=== PATIENT | male | born 1955 | race Caucasian/White ===

== ENCOUNTER 2024-01-21 01:21 | Observation (INO) | payer MEDICARE ==
[2024-01-21] MEDS: SODIUM CHLORIDE 0.9% 1,000 ML IV STA (01:41)
[2024-01-21] MEDS: SODIUM CHLORIDE 0.9% 500 ML 500 ML IV STA (01:42)
[2024-01-21] MEDS: LORazepam 2 MG/ML INJ IV STA ×2 (01:42→03:42)
--- NOTE | 2024-01-21 01:43 | ED ---
General Adult HPI - General Chief complaint: Altered Mental Status Stated complaint: Detox Time Seen by Provider: 01/21/24 01:26 Source: patient, EMS, RN notes reviewed Mode of arrival: EMS Limitations: no limitations - History of Present Illness Initial comments: 68-year-old male presents emergency department from [facility] for evaluation of possible confusion. Patient stated that he was upset because he is out of his cigarettes that he has not been provided any cigarettes. He states that he went to the nurses desk and they asked someone to questions in which she stated he was from [place] in which he states he lived there before but he does admit that he recently came to [place] and is homeless. Patient denies any physical plaints denies feeling shaky or having any significant withdrawal symptoms he did receive Ativan last night. Patient has any chest pain shortness of breath no nausea vomiting no other associated symptoms. - Related Data Home Medications Medication Instructions Recorded Confirmed Acetaminophen Tab [Tylenol] 650 mg PO Q4H PRN MDD 4 doses 01/21/24 01/21/24 Calcium Phos/D3/Magnesium/Zinc 1 tab PO TID PRN 01/21/24 01/21/24 [Kqymbkm-Iyw-Gmde-Vitamin D3] Chlorpheniramine Maleate 4 mg PO Q4H PRN 01/21/24 01/21/24 [Chlor-Trimeton] Ibuprofen [Motrin Ib] 600 mg PO Q6H PRN 01/21/24 01/21/24 LORazepam [Ativan] 1 - 2 mg PO Q4H PRN 01/21/24 01/21/24 Loperamide HCl [Imodium A-D] 4 mg PO QID PRN MDD 8 tablets 01/21/24 01/21/24 Multivitamins, Thera [Multivitamin 1 tab PO DAILY 01/21/24 01/21/24 (formulary)] Mylanta 30 ml PO Q4H PRN 01/21/24 01/21/24 Nicotine Polacrilex [Nicotine 2 mg BC QID PRN 01/21/24 01/21/24 Lozenge] Thiamine [Vitamin B-1] 100 mg PO DAILY 01/21/24 01/21/24 amLODIPine [Norvasc] 5 mg PO DAILY 01/21/24 01/21/24 ondansetron HCL [Zofran] 8 mg PO Q6H PRN 01/21/24 01/21/24 Allergies Allergy/AdvReac Type Severity Reaction Status Date / Time No Known Allergies Allergy Verified 01/21/24 08:01 Review of Systems ROS Statement: Those systems with pertinent positive or pertinent negative responses have been documented in the HPI. ROS Other: All systems not noted in ROS Statement are negative. Past Medical History Past Medical History: Hypertension History of Any Multi-Drug Resistant Organisms: None Reported Past Surgical History: No Surgical Hx Reported Past Psychological History: No Psychological Hx Reported Smoking Status: Current every day smoker Past Alcohol Use History: Abuse Past Drug Use History: None Reported General Exam Limitations: no limitations General appearance: alert, in no apparent distress Head exam: Present: atraumatic, normocephalic, normal inspection Eye exam: Present: normal appearance, PERRL, EOMI. Absent: scleral icterus, conjunctival injection, periorbital swelling ENT exam: Present: mucous membranes moist. Absent: normal oropharynx (Poor dentition) Neck exam: Present: normal inspection, full ROM. Absent: tenderness, meningis mus, lymphadenopathy Respiratory exam: Present: normal lung sounds bilaterally. Absent: respiratory distress, wheezes, rales, rhonchi, stridor Cardiovascular Exam: Present: regular rate, normal rhythm, normal heart sounds. Absent: systolic murmur, diastolic murmur, rubs, gallop, clicks GI/Abdominal exam: Present: soft, normal bowel sounds. Absent: distended, tenderness, guarding, rebound, rigid Neurological exam: Present: alert, oriented X3, CN II-XII intact Course Vital Signs 01/21/24 01/21/24 01/21/24 01:23 01:49 02:55 Pulse Rate 89 81 86 Respiratory 18 16 16 Rate Blood Pressure 178/111 168/92 158/96 O2 Sat by Pulse 99 99 Oximetry 01/21/24 04:58 Pulse Rate 82 Respiratory 18 Rate Blood Pressure 160/98 O2 Sat by Pulse 100 Oximetry EKG Findings - EKG Comments: EKG Findings:: EKG performed at 1: 22 sinus rhythm rate 86 [place] 181 QRS 100 QT/QTc 387/430 - EKG Results: EKG: interpreted by BEN Medical Decision Making - Medical Decision Making Was pt. sent in by a medical professional or institution (, PA, MANAGER BUSINESS CONTINU[employer], urgent care, hospital, or [facility]...) When possible be specific @ -[place] Did you speak to anyone other than the patient for history (EMS, parent, family, police, friend...)? What history was obtained from this source @ -No Did you review nursing and triage notes (agree or disagree)? Why? @ -I reviewed and agree with nursing and triage notes Were old charts reviewed (outside hosp., previous admission, EMS record, old EKG, old radiological studies, urgent care reports/EKG's, m[facility] records)? Report findings @ -No old charts were reviewed Differential Diagnosis (chest pain, altered mental status, abdominal pain women, abdominal pain men, vaginal bleeding, weakness, fever, dyspnea, syncope, headache, dizziness, GI bleed, back pain, seizure, CVA, palpatations, mental health, musculoskeletal)? @ -Alcohol withdrawal, alcohol abuse EKG interpreted by me (3pts min.). @ -None X-rays interpreted by me (1pt min.). @ -None done CT interpreted by me (1pt min.). @ -None done U/S interpreted by me (1pt. min.). @ -None done What testing was considered but not performed or refused? (CT, X-rays, U/S, labs)? Why? @ -None What meds were considered but not given or refused? Why? @ -None Did you discuss the management of the patient with other professionals (professionals i.e. , PA, MANAGER BUSINESS [employer]INU[employer], lab, RT, psych nurse, social services designee, book publisher, teacher, drug abuse resistance education officer, caseworker)? Give summary @ -[Dr. Decker for admission Was smoking cessation discussed for >3mins.? @ -No Was critical care preformed (if so, how long)? @ -No Were there social determinants of health that impacted care today? How? (Homelessness, low income, unemployed, alcoholism, drug addiction, transportation, low edu. Level, literacy, decrease access to med. care, fdc, rehab)? @ -No Was there de-escalation of care discussed even if they declined (Discuss DNR or withdrawal of care, Hospice)? DNR status @ -No What co-morbidities impacted this encounter? (DM, HTN, Smoking, COPD, CAD, Cancer, CVA, ARF, Chemo, Hep., AIDS, mental health diagnosis, sleep apnea, morbid obesity)? @ -Alcohol abuse Was patient admitted / discharged? Hospital course, mention meds given and route, prescriptions, significant lab abnormalities, going to OR and other pertinent info. @ -Admitted patient is having increasing confusion, alcohol withdrawal delirium symptoms. Patient will be admitted on CIWA and benzodiazepines Undiagnosed new problem with uncertain prognosis? @ -No Drug Therapy requiring intensive monitoring for toxicity (Heparin, Nitro, Insul in, Cardizem)? @ -No Were any procedures done? @ -No Diagnosis/symptom? @ -Alcohol withdrawal delirium Acute, or Chronic, or Acute on Chronic? @ -Acute Uncomplicated (without systemic symptoms) or Complicated (systemic symptoms)? @ -Complicated Side effects of treatment? @ -No Exacerbation, Progression, or Severe Exacerbation? @ -No Poses a threat to life or bodily function? How? (Chest pain, [place], [place], pneumonia, PE, COPD, DKA, ARF, appy, cholecystitis, CVA, Diverticulitis, Homicidal, Suicidal, threat to staff... and all critical care pts) @ -Yes alcohol withdrawal seizure - Lab Data Result diagrams: 01/22/24 06:00 01/22/24 06:00 Lab Results 01/21/24 01/21/24 Range/Units 01:37 02:45 WBC 7.7 (3.8-10.6) k/uL RBC 4.41 (4.30-5.90) m/uL Hgb 15.4 (13.0-17.5) gm/dL Hct 46.5 (39.0-53.0) % MCV 105.5 H (80.0-100.0) fL MCH 34.8 (25.0-35.0) pg MCHC 33.0 (31.0-37.0) g/dL RDW 13.4 (11.5-15.5) % Plt Count 173 (150-450) k/uL MPV 8.6 Neutrophils % 68 % Lymphocytes % 21 % Monocytes % 6 % Eosinophils % 2 % Basophils % 1 % Neutrophils # 5.2 (1.3-7.7) k/uL Lymphocytes # 1.6 (1.0-4.8) k/uL Monocytes # 0.4 (0-1.0) k/uL Eosinophils # 0.2 (0-0.7) k/uL Basophils # 0.1 (0-0.2) k/uL Macrocytosis Moderate Sodium 138 (137-145) mmol/L Potassium 4.9 (3.5-5.1) mmol/L Chloride 109 H (98-107) mmol/L Carbon Dioxide 21 L (22-30) mmol/L Anion Gap 8 mmol/L BUN 11 (9-20) mg/dL Creatinine 0.59 L (0.66-1.25) mg/dL Est GFR (CKD-EPI)AfAm >90 (>60 ml/min/1.73 sqM) Est GFR (CKD-EPI)NonAf >90 (>60 ml/min/1.73 sqM) Glucose 95 (74-99) mg/dL Calcium 9.0 (8.4-10.2) mg/dL Magnesium 1.7 (1.6-2.3) mg/dL Total Bilirubin 1.3 (0.2-1.3) mg/dL AST 58 (17-59) U/L ALT 43 (4-49) U/L Alkaline Phosphatase 97 (38-126) U/L Total Protein 7.5 (6.3-8.2) g/dL Albumin 4.3 (3.5-5.0) g/dL Lipase 82 (23-300) U/L Disposition Clinical Impression: Alcohol withdrawal delirium Disposition: ADMITTED IP TO THIS HOSP Condition: Fair Time of Disposition: 03:37
[2024-01-21 01:53] LABS: ALT 43 U/L (4-49); AST 58 U/L (17-59); African American GFR (CKD) >90 (>60 ml/min/1.73 sqM); Albumin 4.3 g/dL (3.5-5.0); Alkaline Phosphatase 97 U/L (38-126); Anion Gap 8 mmol/L; Blood Urea Nitrogen 11 mg/dL (9-20); Carbon Dioxide 21 mmol/L (22-30); Chloride 109 mmol/L (98-107); Glucose 95 mg/dL (74-99); Lipase 82 U/L (23-300); Magnesium 1.7 mg/dL (1.6-2.3); Non-African American GFR(CKD) >90 (>60 ml/min/1.73 sqM); Sodium 138 mmol/L (137-145); Total Bilirubin 1.3 mg/dL (0.2-1.3); Total Protein 7.5 g/dL (6.3-8.2)
[2024-01-21 01:54] LABS: Potassium 4.9 mmol/L (3.5-5.1)
[2024-01-21] MEDS: NICOTINE GUM (POLACRILEX) 2 MG GUM BUCCAL STA (02:00)
[2024-01-21 03:25] LABS: Basophils # (A) 0.1 k/uL (0-0.2); Basophils % (A) 1 %; Eosinophils # (A) 0.2 k/uL (0-0.7); Eosinophils % (A) 2 %; HCT 46.5 % (39.0-53.0); HGB 15.4 gm/dL (13.0-17.5); Lymphocytes # (A) 1.6 k/uL (1.0-4.8); Lymphocytes % (A) 21 %; MCH 34.8 pg (25.0-35.0); MCV 105.5 fL (80.0-100.0); Macrocytosis Moderate; Mean Platelet Volume 8.6; Monocytes # (A) 0.4 k/uL (0-1.0); Monocytes % (A) 6 %; Neutrophils # (A) 5.2 k/uL (1.3-7.7); Neutrophils % (A) 68 %; Platelet Count 173 k/uL (150-450); RBC 4.41 m/uL (4.30-5.90); RDW 13.4 % (11.5-15.5); WBC 7.7 k/uL (3.8-10.6)
[2024-01-21] MEDS ORDERED: LORazepam 2 MG/ML INJ IV PRN ×3 (03:36)
[2024-01-21] MEDS ORDERED: ONDANSETRON 4 MG/2 ML VIAL IVP PRN (03:37)
[2024-01-21] MEDS ORDERED: NALOXONE 0.4 MG/ML 1 ML VIAL IV PRN (03:37)
[2024-01-21] MEDS: NICOTINE 21MG/24HR PATCH TRANSDERM STA (03:46)
[2024-01-21] MEDS: SODIUM CHLORIDE 0.9% 1,000 ML IV SCH (06:00)
[2024-01-21] MEDS: LORazepam 1 MG TAB PO PRN (09:09)
[2024-01-21] MEDS: THIAMINE 100 MG TAB PO SCH (09:09)
[2024-01-21] MEDS ORDERED: ACETAMINOPHEN TAB 325 MG TAB PO PRN (12:09)
--- NOTE | 2024-01-21 15:06 | P.HPIM ---
History of Present Illness H&P Date: 01/21/24 Chief Complaint: confusion 68-year-old male admitted through the emergency department on medical floor due to confusion, patient seen eval reexamined today he is awake but remains pleasantly confuseds and anxious not much data can be obtained from him he probably obtained from the chart. It appears that patient transferred from outlying facility presented there for confusion, patient is homeless feeling shaky, patient did receive Ativan prior to arrival in the emergency department. On arrival he was hypertensive with blood pressure of 178/11 however oxygen saturation stable 99%his ECG revealed normal sinus rhythm chemistry significant for sodium 1:30 percent 4.9 chloride 109 bicarb is 21 BUN and creatinine 11/0.59 sugar is 95 CBC within normal limit AST/ALT 58/43 total bili was 1.5 magnesium is 1.7 alk phos 97 lipase is 82, unable to find alcohol level Review of Systems ROS unobtainable: due to mental status Past Medical History Past Medical History: Hypertension History of Any Multi-Drug Resistant Organisms: None Reported Past Surgical History: No Surgical Hx Reported Past Anesthesia/Blood Transfusion Reactions: Unable to Obtain Past Psychological History: No Psychological Hx Reported Smoking Status: Current every day smoker Past Alcohol Use History: Abuse Past Drug Use History: None Reported Medications and Allergies Home Medications Medication Instructions Recorded Confirmed Type Acetaminophen Tab [Tylenol] 650 mg PO Q4H PRN MDD 4 doses 01/21/24 01/21/24 History Calcium Phos/D3/Magnesium/Zinc 1 tab PO TID PRN 01/21/24 01/21/24 History [Lppqjso-Qug-Whpv-Vitamin D3] Chlorpheniramine Maleate 4 mg PO Q4H PRN 01/21/24 01/21/24 History [Chlor-Trimeton] Ibuprofen [Motrin Ib] 600 mg PO Q6H PRN 01/21/24 01/21/24 History LORazepam [Ativan] 1 - 2 mg PO Q4H PRN 01/21/24 01/21/24 History Loperamide HCl [Imodium A-D] 4 mg PO QID PRN MDD 8 tablets 01/21/24 01/21/24 History Multivitamins, Thera [Multivitamin 1 tab PO DAILY 01/21/24 01/21/24 History (formulary)] Mylanta 30 ml PO Q4H PRN 01/21/24 01/21/24 History Nicotine Polacrilex [Nicotine 2 mg BC QID PRN 01/21/24 01/21/24 History Lozenge] Thiamine [Vitamin B-1] 100 mg PO DAILY 01/21/24 01/21/24 History amLODIPine [Norvasc] 5 mg PO DAILY 01/21/24 01/21/24 History ondansetron HCL [Zofran] 8 mg PO Q6H PRN 01/21/24 01/21/24 History Allergies Allergy/AdvReac Type Severity Reaction Status Date / Time No Known Allergies Allergy Verified 01/21/24 08:01 Physical Exam Vitals: Vital Signs Temp Pulse Pulse Resp BP BP Pulse Ox 01/21/24 14:15 97.2 F L 101 H 22 133/83 96 01/21/24 07:34 97.5 F L 96 20 135/92 99 01/21/24 04:58 82 18 160/98 100 01/21/24 02:55 86 16 158/96 01/21/24 01:49 81 16 168/92 99 01/21/24 01:23 89 18 178/111 99 Intake and Output 01/20/24 01/21/24 01/21/24 22:59 06:59 14:59 Other: # Voids 1 Weight 70.307 kg 70.307 kg - Constitutional General appearance: average body habitus, disheveled, mild distress - EENT Eyes: EOMI, PERRLA Ears: bilateral: normal - Neck Neck: normal ROM Carotids: bilateral: upstroke normal Thyroid: bilateral: normal size - Respiratory Respiratory: bilateral: CTA - Cardiovascular Rhythm: regular Heart sounds: normal: S1, S2 - Gastrointestinal General gastrointestinal: soft - Integumentary Integumentary: normal turgor - Neurologic Neurologic: CNII-XII intact - Musculoskeletal Musculoskeletal: gait normal, generalized weakness, strength equal bilaterally Results CBC & Chem 7: 01/21/24 02:45 01/21/24 01:37 Labs: Abnormal Lab Results - Last 24 Hours (Table) 01/21/24 01/21/24 Range/Units 01:37 02:45 MCV 105.5 H (80.0-100.0) fL Chloride 109 H (98-107) mmol/L Carbon Dioxide 21 L (22-30) mmol/L Creatinine 0.59 L (0.66-1.25) mg/dL Thrombosis Risk Factor Assmnt - Choose All That Apply Any of the Below Risk Factors Present?: No Each Risk Factor Represents 2 Points: Age 61-74 years Thrombosis Risk Factor Assessment Total Risk Factor Score: 2 Thrombosis Risk Factor Assessment Level: Low Risk Assessment and Plan Assessment: altered mental status due to confusion likely related to alcohol withdrawal alcohol withdrawal on CIWA protocol with Thiamine hypertension, on Norvasc repeat labs with alcohol level Plan: As above Time with Patient: Greater than 30
[2024-01-21] MEDS: LORazepam 0.5 MG TAB PO PRN (17:48)
--- NOTE | 2024-01-21 17:52 | XR ---
EXAMINATION TYPE: XR chest 1V DATE OF EXAM: 01/21/2024 5:28 PM CLINICAL INDICATION:Male, 68 years old with history of pneumonia; COMPARISON: None TECHNIQUE: XR chest 1V Frontal view of the chest. FINDINGS: Lungs/Pleura: There is no evidence of pleural effusion, focal consolidation, or pneumothorax. Pulmonary vascularity: Unremarkable. Heart/mediastinum: Cardiomediastinal silhouette is unremarkable. Musculoskeletal: No acute osseous pathology. IMPRESSION: No acute cardiopulmonary disease/process.
[2024-01-22 08:24] VITALS: BP 161/83; PULSE 77; RESP 16; TEMP 97.6
[2024-01-22] MEDS: MULTIVITAMINS, THERA 1 EACH TAB PO SCH (08:46)
[2024-01-22] MEDS: amLODIPine 5 MG TAB PO SCH (08:46)
[2024-01-22 09:41] LABS: Basophils # (A) 0.02 X 10*3/uL (0.00-0.10); Basophils % (A) 0.4 %; Eosinophils # (A) 0.24 X 10*3/uL (0.04-0.35); Eosinophils % (A) 4.2 %; HCT 39.8 % (39.6-50.0); HGB 13.5 g/dL (13.0-17.0); Lymphocytes # (A) 1.75 X 10*3/uL (0.90-5.00); Lymphocytes % (A) 30.6 %; MCH 33.8 pg (27.0-32.0); MCHC 33.9 g/dL (32.0-37.0); MCV 99.7 FL (80.0-97.0); Mean Platelet Volume 10.7 FL (9.5-12.2); Monocytes # (A) 0.62 X 10*3/uL (0.20-1.00); Monocytes % (A) 10.9 %; NRBC Per 100 WBC 0 X 10*3/uL (0.00-0.01); Neutrophils # (A) 3.06 X 10*3/uL (1.80-7.70); Neutrophils % (A) 53.5 %; Platelet Count 166 X 10*3/uL (140-440); RBC 3.99 X 10*6/uL (4.40-5.60); RDW 13.4 % (11.5-14.5); WBC 5.71 X 10*3/uL (4.50-10.00)
[2024-01-22 09:54] LABS: ALT 37 U/L (10-49); AST 33 U/L (14-35); Albumin 3.9 g/dL (3.8-4.9); Albumin/Globulin Ratio 1.56 Ratio (1.60-3.17); Alkaline Phosphatase 102 U/L (41-126); BUN/Creat Ratio 11.86 Ratio (12.00-20.00); Blood Urea Nitrogen 8.3 mg/dL (9.0-27.0); Calcium 8.7 mg/dL (8.7-10.3); Carbon Dioxide 24.3 mmol/L (21.6-31.8); Chloride 106 mmol/L (96-109); Globulin 2.5 g/dL (1.6-3.3); Glucose 92 mg/dL (70-110); Magnesium 1.7 mg/dL (1.5-2.4); Phosphorus 4.3 mg/dL (2.4-5.1); Potassium 3.8 mmol/L (3.5-5.5); Sodium 140 mmol/L (135-145); Total Bilirubin 0.7 mg/dL (0.3-1.2); Total Protein 6.4 g/dL (6.2-8.2)
--- NOTE | 2024-01-22 15:29 | P.DS ---
Providers Date of admission: 01/21/24 04:45 Attending physician: Lorenzo Palmer Primary care physician: Stated None Hospital Course: 68-year-old male admitted through the emergency department on medical floor due to confusion, patient seen eval reexamined today he is awake but remains pleasantly confuseds and anxious not much data can be obtained from him he probably obtained from the chart. It appears that patient transferred from outlying facility presented there for confusion, patient is homeless feeling shaky, patient did receive Ativan prior to arrival in the emergency department. 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 for increasing confusion from [place] has a history of alcohol intoxication he also was feeling shaky and going and impending withdrawal patient has been admitted into the hospital for alcohol withdrawal placed on protocol with Ativan also thiamine progressively patient more composed and back to baseline nephew present at bedsidelrepeat serum alcohol level was less than 10 CBC chemistry reviewed patient expressed that he does not want to go back to [place] but rather wanted to go with nephew Assessment: altered mental status due to confusion likely related to alcohol withdrawal alcohol withdrawal on CIWA protocol with Thiamine hypertension, on Norvasc repeat labs with alcohol level discharge exam - Constitutional General appearance: average body habitus, disheveled, mild distress - EENT Eyes: EOMI, PERRLA Ears: bilateral: normal - Neck Neck: normal ROM Carotids: bilateral: upstroke normal Thyroid: bilateral: normal size - Respiratory Respiratory: bilateral: CTA - Cardiovascular Rhythm: regular Heart sounds: normal: S1, S2 - Gastrointestinal General gastrointestinal: soft - Integumentary Integumentary: normal turgor - Neurologic Neurologic: CNII-XII intact - Musculoskeletal Musculoskeletal: gait normal, generalized weakness, strength equal bilaterally Patient Condition at Discharge: Fair Plan - Discharge Summary Discharge Rx Participant: Yes New Discharge Prescriptions: No Action amLODIPine [Norvasc] 5 mg PO DAILY Mylanta 30 ml PO Q4H PRN PRN Reason: Gi Upset Loperamide HCl [Imodium A-D] 4 mg PO QID PRN MDD 8 tablets PRN Reason: Loose Stool Ibuprofen [Motrin Ib] 600 mg PO Q6H PRN PRN Reason: Pain Chlorpheniramine Maleate [Chlor-Trimeton] 4 mg PO Q4H PRN PRN Reason: Allergy Symptoms Calcium Phos/D3/Magnesium/Zinc [Amfoyze-Fcb-Jbfd-Vitamin D3] 1 tab PO TID PRN PRN Reason: CRAMPS LORazepam [Ativan] 1 - 2 mg PO Q4H PRN PRN Reason: Anxiety ondansetron HCL [Zofran] 8 mg PO Q6H PRN PRN Reason: Nausea And Vomiting Thiamine [Vitamin B-1] 100 mg PO DAILY Acetaminophen Tab [Tylenol] 650 mg PO Q4H PRN MDD 4 doses PRN Reason: Pain Or Fever > 100.5 Multivitamins, Thera [Multivitamin (formulary)] 1 tab PO DAILY Nicotine Polacrilex [Nicotine Lozenge] 2 mg BC QID PRN PRN Reason: Nicotine Cravings Discharge Medication List Acetaminophen Tab [Tylenol] 650 mg PO Q4H PRN MDD 4 doses 01/21/24 [History] Calcium Phos/D3/Magnesium/Zinc [Atjmqyz-Woy-Wvpy-Vitamin D3] 1 tab PO TID PRN 01/21/24 [History] Chlorpheniramine Maleate [Chlor-Trimeton] 4 mg PO Q4H PRN 01/21/24 [History] Ibuprofen [Motrin Ib] 600 mg PO Q6H PRN 01/21/24 [History] LORazepam [Ativan] 1 - 2 mg PO Q4H PRN 01/21/24 [History] Loperamide HCl [Imodium A-D] 4 mg PO QID PRN MDD 8 tablets 01/21/24 [History] Multivitamins, Thera [Multivitamin (formulary)] 1 tab PO DAILY 01/21/24 [ History] Mylanta 30 ml PO Q4H PRN 01/21/24 [History] Nicotine Polacrilex [Nicotine Lozenge] 2 mg BC QID PRN 01/21/24 [History] Thiamine [Vitamin B-1] 100 mg PO DAILY 01/21/24 [History] amLODIPine [Norvasc] 5 mg PO DAILY 01/21/24 [History] ondansetron HCL [Zofran] 8 mg PO Q6H PRN 01/21/24 [History] Follow up Appointment(s)/Referral(s): None,Stated [Primary Care Provider] - 1-2 days Patient Instructions/Handouts: Alcohol Intoxication (DC) Activity/Diet/Wound Care/Special Instructions: Call [place] at [phone] once medically stable for discharge. They will take patient back and pick patient up. PAtient is refusing to go to [facility]. Dr Oliva is aware and said he can be discharged Discharge/Stand Alone Forms: AA Meetings Dist & 24 - [facility], [facility] Shelters, Outpatient Counseling, Inp Substance Abuse Facilities
== END 2024-01-22 15:14 ==
LOC: EC 01:21 → 6NMEDSUR 04:45 → 4SSUR 05:24
PROVIDERS: ADMIT Family Medicine; ATTEND Family Medicine
DX: F10.139 Alcohol abuse with withdrawal, unspecified (principal); Y90.0 Blood alcohol level of less than 20 mg/100 ml; I10 Essential (primary) hypertension; F17.210 Nicotine dependence, cigarettes, uncomplicated; Z59.00 Homelessness unspecified; Z79.899 Other long term (current) drug therapy
CPT/HCPCS: 96361 ×2; 96374; 99285; 36415; 93005; 80053 ×2; 83690; 83735 ×2; 84100; 85025 ×2; 71045; G0378 ×2; G0480; S4990; J2060; 80320